=== PATIENT | male | born 1975 | race Caucasian/White ===

== ENCOUNTER 2016-04-22 18:07 | Emergency (ER) | payer MEDICAID ==
[2016-04-22] MEDS ORDERED: NORMAL SALINE 1000 ML 1,000 ML IV ONE (20:10)
[2016-04-22] MEDS ORDERED: OXYCODONE HCL IR 5 MG TABLET PO ONE (20:10)
[2016-04-22] MEDS ORDERED: ONDANSETRON HCL INJ/PF 4 MG/2 ML SDV IV ONE (20:10)
[2016-04-22 20:21] LABS: ABSOLUTE EOSINOPHILS # (AUTO) 0.1 10^3/uL (0.0-0.6); ABSOLUTE LYMPHOCYTES (AUTO) 1.2 10^3/uL (0.5-4.7); ABSOLUTE MONOCYTES (AUTO) 0.8 10^3/uL (0.1-1.4); ABSOLUTE NEUT (AUTO) 5.2 10^3/uL (1.7-8.2); BASOPHILS % (AUTO) 0.5 % (0-2); EOSINOPHILS % (AUTO) 0.9 % (0-6); HEMATOCRIT 47.2 % (37.9-51.0); HEMOGLOBIN 15.9 g/dL (13.5-17.0); HGB HCT DIFFERENCE 0.5; LYMPHOCYTES % (AUTO) 16.9 % (13-45); MEAN CORPUSCULAR HEMOGLOBIN 29.8 pg (27.0-33.4); MEAN CORPUSCULAR HGB CONC 33.7 g/dL (32.0-36.0); MEAN CORPUSCULAR VOLUME 88 fl (80-97); MONOCYTES % (AUTO) 10.9 % (3-13); RED BLOOD COUNT 5.35 10^6/uL (4.35-5.55); RED CELL DISTRIBUTION WIDTH 15.5 % (11.5-14.0); SEGMENTED NEUTROPHILS % (AUTO) 70.8 % (42-78); WHITE BLOOD COUNT 7.3 10^3/uL (4.0-10.5)
--- NOTE | 2016-04-22 20:25 | ER Document Report ---
ED General - General Chief Complaint: Abdominal Pain Stated Complaint: STOMACH PAINS Notes: Patient is a 40-year-old male past medical history of APL currently in remission however last chemotherapy dose was 3 days ago who presents with 6 hours of vomiting. States that he began vomiting earlier today mostly with posttussive emesis and since having multiple episodes of vomiting his head diffuse, generalized, mild abdominal cramping. Nothing improves or worsens his symptoms. He is uncertain if he has had similar symptoms in the past. He denies any focal abdominal pain. Denies diarrhea and significant abnormal bowel movements and continued this to pass flatus without difficulty. He has not seen his primary care doctor regarding today's concerns. He does also complain of severe, constant, sharp pain to the left great toe which he states feels identical to when he had gout in the past. TRAVEL OUTSIDE OF THE [place] IN LAST 30 DAYS: No - Related Data Allergies/Adverse Reactions: prednisone [Prednisone] Allergy (Verified 06/29/15 19:00) Past Medical History - General Information source: Patient - Social History Smoking Status: Never Smoker Frequency of alcohol use: None Drug Abuse: None Lives with: Spouse/Significant other Family History: Hypertension - Past Medical History Cardiac Medical History: Reports: Hx Congestive Heart Failure, Hx Hypertension Endocrine Medical History: Reports: Hx Diabetes Mellitus Type 2 Renal/ Medical History: Reports: Hx End Stage Renal Disease Malignancy Medical History: Reports Hx Leukemia - AML Psychiatric Medical History: Reports: Hx Anxiety Past Surgical History: Reports: Hx Orthopedic Surgery - Immunizations Hx Diphtheria, Pertussis, Tetanus Vaccination: Yes Review of Systems - Review of Systems Notes: Constitutional: Negative for fever. HENT: Negative for sore throat. Eyes: Negative for visual changes. Cardiovascular: Negative for chest pain. Respiratory: Negative for shortness of breath. Gastrointestinal: Positive for abdominal cramping and vomiting Genitourinary: Negative for dysuria. Musculoskeletal: Negative for back pain. Skin: Negative for rash. Neurological: Negative for headaches, weakness or numbness. 10 point ROS negative except as marked above and in HPI. Physical Exam - Vital signs Vitals: Temp Pulse Resp BP Pulse Ox 98.1 F 109 H 18 111/74 95 04/22/16 18:17 04/22/16 18:17 04/22/16 18:17 04/22/16 18:17 04/22/16 18:17 Interpretation: Tachycardic Notes: PHYSICAL EXAMINATION: GENERAL: Well-appearing, well-nourished and in no acute distress. HEAD: Atraumatic, normocephalic. EYES: Pupils equal round and reactive to light, extraocular movements intact, sclera anicteric, conjunctiva are normal. ENT: nares patent, oropharynx clear without exudates. Moist mucous membranes. NECK: Normal range of motion, supple without lymphadenopathy LUNGS: Breath sounds clear to auscultation bilaterally and equal. No wheezes rales or rhonchi. HEART: Regular rate and rhythm without murmurs ABDOMEN: Soft, nontender, normoactive bowel sounds. No guarding, no rebound. No masses appreciated. EXTREMITIES: Normal range of motion, no pitting or edema. No cyanosis. NEUROLOGICAL: No focal neurological deficits. Moves all extremities spontaneously and on command. PSYCH: Normal mood, normal affect. SKIN: Warm, Dry, normal turgor, no rashes or lesions noted. Course - Re-evaluation Re-evalutation: 04/22/16 20:23 Patient presents with persistent vomiting followed by abdominal cramping but is overall very well in appearance. He is in no distress whatsoever, vitals within normal limits. He is actively on chemotherapy at this time with a diagnosis of APL, last dose of chemotherapy was 3 days ago. Patient has no prior history of abdominal surgeries and has continued to pass flatus without difficulty. Having appropriate bowel movements. He vomited here in the emergency department and was contents of what he had eaten. No evidence of bilious vomiting. He has no focal abdominal tenderness on examination. I do not suspect an acute pancreatitis, biliary pathology, bowel obstruction or ileus. Likewise a do not suspect an acute mesenteric ischemia. Will obtain basic laboratories, provide IV fluids, and patient is already tolerated oral intake at the time my assessment. He is requesting pain management medications for gout in his left great toe which she has had in the past. 04/22/16 21:30 Patient laboratories show very mild acute kidney injury consistent with his frequent vomiting. He also is mild lipase elevation although not elevated and not to suggest an acute otitis and patient does not have any epigastric abdominal tenderness. He has continued to tolerate oral intake without difficulty. IV fluids have been completed. His repeat abdominal exam remains benign. Patient is also complaining of severe pain in his left great toe consistent with his prior attacks of gout. He will be empirically started on colchicine and given a short course of pain medications. Patient is also had multiple episodes of posttussive emesis and states the majority of his vomiting is actually been after coughing. He will also be sent on Tessalon Perles to assist with his persistent coughing. At this time will discharge with return precautions and follow-up recommendations. Verbal discharge instructions given a the bedside and opportunity for questions given. Medication warnings reviewed. Patient is in agreement with this plan and has verbalized understanding of return precautions and the need for primary care follow-up in the next 24-72 hours. 04/23/16 02:57 She was tachycardic at time of discharge. He and his both state that this is baseline for him. - Vital Signs Vital signs: Temp Pulse Resp BP Pulse Ox 98.9 F 116 H 20 126/82 H 96 04/22/16 22:50 04/22/16 22:50 04/22/16 22:50 04/22/16 22:50 04/22/16 22:50 - Laboratory Result Diagrams: 04/22/16 20:07 04/22/16 20:07 Laboratory results interpreted by me: 04/22/16 04/22/16 20:07 20:07 RDW 15.5 H BUN 29 H Creatinine 1.56 H Est GFR (Non-Af Amer) 50 L Glucose 157 H Lipase 472.5 H - Diagnostic Test Radiology reviewed: Image reviewed, Reports reviewed Radiology results interpreted by me: 04/23/16 02:57 Chest x-ray: No acute infiltrate Discharge - Discharge Clinical Impression: Acute renal insufficiency, Cough, Post-tussive emesis Vomiting Qualifiers: Vomiting type: unspecified Vomiting Intractability: non-intractable Nausea presence: with nausea Qualified Code(s): R11.2 - Nausea with vomiting, unspecified Gout Qualifiers: Gout site: toe Gout etiology: unspecified cause Laterality: left Chronicity: acute Qualified Code(s): M10.9 - Gout, unspecified Condition: Good Disposition: HOME, SELF-CARE Additional Instructions: You have been seen in the Emergency Department (ED) today for nausea and vomiting. Your work up today has not shown a clear cause for your symptoms. You have been prescribed Zofran; please use as prescribed as needed for your nausea. Follow up with your doctor as soon as possible regarding today's emergent visit and your symptoms of nausea. You are also being sent home with a dose of colchicine to take one hour after receiving your first dose here in the emergency department to treat the gout flare. You also being sent home with Tamra Major to help with her persistent coughing. The oxycodone that you were sent home with can be taken as needed for severe toe pain. You should also use ibuprofen 600 mg every 6 hours to help control the pain. Return to the Emergency Department (ED) if you develop abdominal pain, bloody vomiting, bloody diarrhea, if you are unable to tolerate fluids due to vomiting , or if you develop other symptoms that concern you. Prescriptions: Ondansetron [Zofran Odt 4 mg Tablet] 1 - 2 tab PO Q4HP PRN #10 tab.rapdis PRN Reason: Oxycodone HCl [Oxycodone HCl 10 MG Tablet] 10 mg PO Q6HP PRN #12 tablet PRN Reason: Benzonatate [Tessalon Perle 100 mg Capsule] 100 mg PO Q8HP PRN #40 cap PRN Reason: Referrals: SWATHI TEE PA-C [Primary Care Provider] - Follow up as needed
[2016-04-22 20:39] LABS: ANION GAP 16 (5-19); BLOOD UREA NITROGEN 29 mg/dL (7-20); CALCIUM 10.1 mg/dL (8.4-10.2); CARBON DIOXIDE 27 mmol/L (22-30); CHLORIDE 100 mmol/L (98-107); CREATININE RESULT 1.56 mg/dL (0.52-1.25); GLUCOSE 157 mg/dL (75-110); LIPASE 472.5 U/L (23-300); POTASSIUM 3.7 mmol/L (3.6-5.0); SODIUM 143.1 mmol/L (137-145)
[2016-04-22] MEDS ORDERED: ONDANSETRON ODT 4 MG TAB (6 TAB/DSPK) PO PRN (21:32)
[2016-04-22] MEDS ORDERED: COLCHICINE 0.6 MG TABLET PO ONE ×3 (21:46→21:52)
[2016-04-22] MEDS ORDERED: BENZONATATE 100 MG CAPSULE PO ONE (21:47)
[2016-04-22] MEDS ORDERED: HYDROCODONE/ACETAMINOPHEN 5-325 MG 6 TAB/DSPK PO PRN (22:46)
[2016-04-22 23:03] VITALS: BP 126/82
== END 2016-04-22 22:57 | disposition home or self-care (01) ==
LOC: ER 18:07
DX: N28.9 Disorder of kidney and ureter, unspecified (principal); R10.9 Unspecified abdominal pain; R11.2 Nausea with vomiting, unspecified; M10.9 Gout, unspecified; C92.Z1 Other myeloid leukemia, in remission; E11.22 Type 2 diabetes mellitus with diabetic chronic kidney disease; I13.11 Hypertensive heart and chronic kidney disease without heart failure, with stage 5 chronic kidney disease, or end stage renal disease; N18.6 End stage renal disease
CPT/HCPCS: 99284; 96361; 96374; 36415; 83690; 85025; 80048; 71020; J3490 ×3; J2405; J7030

== ENCOUNTER 2016-04-27 14:20 | Emergency (ER) | payer MEDICAID ==
[2016-04-27] MEDS ORDERED: ONDANSETRON HCL INJ/PF 4 MG/2 ML SDV IV ONE (14:32)
[2016-04-27] MEDS ORDERED: MORPHINE SULFATE 10 MG/ML INJ IV ONE (14:52)
--- NOTE | 2016-04-27 14:56 | ER Document Report ---
ED General - General Chief Complaint: Nausea/Vomiting Stated Complaint: NAUSEA Mode of Arrival: Medic Information source: Patient Notes: 40-year-old male history of leukemia presents with complaints of nausea vomiting. Patient denies any fevers or chills Patient admits to gout pain in his foot left 1st digit TRAVEL OUTSIDE OF THE [place] IN LAST 30 DAYS: No - HPI Onset: Last week Onset/Duration: Intermittent Quality of pain: Achy Severity: Mild Pain Level: 1 Associated symptoms: Nausea, Vomiting Exacerbated by: Denies Relieved by: Denies Similar symptoms previously: Yes Recently seen / treated by doctor: Yes - Related Data Allergies/Adverse Reactions: prednisone [Prednisone] Allergy (Verified 06/29/15 19:00) Past Medical History - Social History Smoking Status: Current Every Day Smoker Cigarette use (# per day): Yes Chew tobacco use (# tins/day): No Smoking Education Provided: No Family History: Hypertension - Past Medical History Cardiac Medical History: Reports: Hx Congestive Heart Failure, Hx Hypertension Endocrine Medical History: Reports: Hx Diabetes Mellitus Type 2 Renal/ Medical History: Reports: Hx End Stage Renal Disease Malignancy Medical History: 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 Denies recent illness. EENT: Denies eye, ear, throat, or mouth pain or symptoms. Denies nasal or sinus congestion or discharge. Denies throat, tongue, or mouth swelling or difficulty swallowing. CARDIOVASCULAR: Denies chest pain. Denies palpitations or racing or irregular heart beat. Denies ankle edema. RESPIRATORY: Denies cough, cold, or chest congestion. Denies shortness of breath, difficulty breathing, or wheezing. GASTROINTESTINAL: Admits nausea vomiting GENITOURINARY: Denies difficulty urinating, painful urination, burning, frequency, blood in urine, or discharge. MUSCULOSKELETAL: Denies back or neck pain or stiffness. Denies joint pain or swelling. SKIN: Denies rash, lesions or sores. HEMATOLOGIC : Denies easy bruising or bleeding. LYMPHATIC: Denies swollen, enlarged glands. NEUROLOGICAL: Denies confusion or altered mental status. Denies passing out or loss of consciousness. Denies dizziness or lightheadedness. Denies headache. Denies weakness or paralysis or loss of use of either side. Denies problems with gait or speech. Denies sensory loss, numbness, or tingling. Denies seizures. PSYCHIATRIC: Mood angry ALL OTHER SYSTEMS REVIEWED AND NEGATIVE. Dictation was performed using [employer] voice recognition software PHYSICAL EXAMINATION: GENERAL: Well-appearing, well-nourished and in no acute distress. HEAD: Atraumatic, normocephalic. EYES: Pupils equal round and reactive to light, extraocular movements intact, sclera anicteric, conjunctiva are normal. ENT: Nares patent, oropharynx clear without exudates. Moist mucous membranes. NECK: Normal range of motion, supple without lymphadenopathy LUNGS: Breath sounds clear to auscultation bilaterally and equal. No wheezes rales or rhonchi. HEART: Regular rate and rhythm without murmurs ABDOMEN: Soft, nontender, nondistended abdomen. No guarding, no rebound. No masses appreciated. Musculoskeletal: Normal range of motion, no pitting or edema. No cyanosis. NEUROLOGICAL: Cranial nerves grossly intact. Normal speech, normal gait. Normal sensory, motor exams PSYCH: Patient's angry cursing SKIN mild erythema of the left foot first digit Physical Exam - Vital signs Vitals: Temp Pulse Resp BP Pulse Ox 98.3 F 107 H 21 H 130/90 H 93 04/27/16 14:31 04/27/16 14:31 04/27/16 14:31 04/27/16 14:31 04/27/16 14:31 Course - Re-evaluation Re-evalutation: 04/27/16 14:52 Patient noted to be cursing out staph before my arrival to the room, he is quite rude to me as well states if he only receives 5 mg of pain medication he will "make a call and make things happen". pt refuses to explain what that means 04/27/16 14:56 Patient will be treated for his nausea vomiting, pain control ordered for his gout 04/27/16 16:36 pt has not vomited in the ed, demanding narcotics for home noted ot be hypokalemic, eating chips in the room After performing a Medical Screening Examination, I estimate there is LOW risk for ACUTE CORONARY SYNDROME, RESPIRATORY FAILURE, SEPSIS OR MENINGITIS, thus I consider the discharge disposition reasonable. The patient and I have discussed the diagnosis and risks, and we agree with discharging home with close follow- up. We also discussed returning to the Emergency Department immediately if new or worsening symptoms occur. We have discussed the symptoms which are most concerning (e.g., changing or worsening pain, trouble swallowing or breathing, neck stiffness, fever) that necessitate immediate return. - Vital Signs Vital signs: Temp Pulse Resp BP Pulse Ox 98.3 F 107 H 21 H 130/90 H 93 04/27/16 14:31 04/27/16 14:31 04/27/16 14:31 04/27/16 14:31 04/27/16 14:31 - Laboratory Result Diagrams: 04/27/16 15:40 04/27/16 15:40 Laboratory results interpreted by me: 04/27/16 04/27/16 15:40 15:40 RDW 15.2 H Potassium 3.1 L Chloride 95 L Carbon Dioxide 33 H Glucose 156 H Discharge - Discharge Clinical Impression: Hypokalemia Vomiting Qualifiers: Vomiting type: unspecified Vomiting Intractability: non-intractable Nausea presence: with nausea Qualified Code(s): R11.2 - Nausea with vomiting, unspecified Condition: Stable Disposition: HOME, SELF-CARE Instructions: Vomiting ([facility]) Prescriptions: Colchicine [Colchicine 0.6 mg Tablet] 0.6 mg PO ASDIR PRN #3 tablet PRN Reason: Hydrocodone/Acetaminophen [Lortab 7.5-325 mg Tablet] 1 each PO Q6 #14 tablet Referrals: LORRAINE TERRELL DO [Primary Care Provider] - Follow up tomorrow
[2016-04-27 16:08] LABS: ABSOLUTE EOSINOPHILS # (AUTO) 0.1 10^3/uL (0.0-0.6); ABSOLUTE MONOCYTES (AUTO) 0.7 10^3/uL (0.1-1.4); BASOPHILS % (AUTO) 0.3 % (0-2); EOSINOPHILS % (AUTO) 0.9 % (0-6); HEMATOCRIT 48.1 % (37.9-51.0); HEMOGLOBIN 16.2 g/dL (13.5-17.0); HGB HCT DIFFERENCE 0.5; LYMPHOCYTES % (AUTO) 34.9 % (13-45); MEAN CORPUSCULAR HEMOGLOBIN 29.3 pg (27.0-33.4); MEAN CORPUSCULAR HGB CONC 33.8 g/dL (32.0-36.0); MEAN CORPUSCULAR VOLUME 87 fl (80-97); MONOCYTES % (AUTO) 12.3 % (3-13); RED BLOOD COUNT 5.54 10^6/uL (4.35-5.55); RED CELL DISTRIBUTION WIDTH 15.2 % (11.5-14.0); SEGMENTED NEUTROPHILS % (AUTO) 51.6 % (42-78); WHITE BLOOD COUNT 5.9 10^3/uL (4.0-10.5)
[2016-04-27 16:26] LABS: ALANINE AMINOTRANSFERASE 38 U/L (21-72); ALBUMIN 4.3 g/dL (3.5-5.0); ALKALINE PHOSPHATASE 70 U/L (38-126); ANION GAP 16 (5-19); ASPARTATE AMINO TRANSFERASE 25 U/L (17-59); BILIRUBIN,TOTAL 1.1 mg/dL (0.2-1.3); BLOOD UREA NITROGEN 19 mg/dL (7-20); CALCIUM 9.5 mg/dL (8.4-10.2); CARBON DIOXIDE 33 mmol/L (22-30); CHLORIDE 95 mmol/L (98-107); CREATININE RESULT 1.07 mg/dL (0.52-1.25); GLUCOSE 156 mg/dL (75-110); POTASSIUM 3.1 mmol/L (3.6-5.0); SODIUM 143.8 mmol/L (137-145); TOTAL PROTEIN 7.4 g/dL (6.3-8.2)
[2016-04-27] MEDS ORDERED: POTASSIUM CHLORIDE 10 MEQ TABLET.SA PO ONE (16:29)
[2016-04-27 17:10] VITALS: BP 129/87
== END 2016-04-27 16:58 | disposition home or self-care (01) ==
LOC: ER 14:20
DX: R11.2 Nausea with vomiting, unspecified (principal); M10.9 Gout, unspecified; E87.6 Hypokalemia; R45.4 Irritability and anger; I12.0 Hypertensive chronic kidney disease with stage 5 chronic kidney disease or end stage renal disease; E11.22 Type 2 diabetes mellitus with diabetic chronic kidney disease; N18.6 End stage renal disease; F17.210 Nicotine dependence, cigarettes, uncomplicated; Z85.6 Personal history of leukemia; Z88.8 Allergy status to other drugs, medicaments and biological substances
CPT/HCPCS: 99284; 96374; 96375; 36415; 85025; 80053; J2270; J2405

== ENCOUNTER → 2016-05-21 | Outpatient (CLI) | payer MEDICAID | LOC: OD 10:22 | PROVIDERS: ATTEND Family Medicine | DX: M51.37 Other intervertebral disc degeneration, lumbosacral region (principal); M54.30 Sciatica, unspecified side | CPT/HCPCS: 72110 ==

== ENCOUNTER → 2016-06-08 | Outpatient (CLI) | payer MEDICAID | LOC: OD 15:09 | PROVIDERS: ATTEND Family Medicine | DX: M25.561 Pain in right knee (principal) ==

== ENCOUNTER 2016-07-11 01:16 | Emergency (ER) | payer MEDICAID ==
--- NOTE | 2016-07-11 02:06 | ER Document Report ---
ED General - General Chief Complaint: Chest Pain Stated Complaint: CHEST PAIN Time Seen by Provider: 07/11/16 02:04 Notes: Patient is a 40-year-old male who presents with complaint of chest pain. Patient says had similar chest pain in the past. He says he first hurt his chest a few years ago when he was lifting weights and felt a pop in his chest. He says tonight he developed exact same pain when he is picking his kids up off the top bunk. He says when he looked up his kids he felt this chest pop and now is having pain in the parasternal area between his ribs. Patient has a history of CHF. His history of leukemia. He says he is in remission but still takes medications for the leukemia. She says he did not have any pain prior to the episode where he picked up his kids. He did call an ambulance. Their EKG does show multiple PVCs but no other ischemic changes. He has had a cardiac stress test which were negative. He has no other complaints at this time. TRAVEL OUTSIDE OF THE [place] IN LAST 30 DAYS: No - Related Data Allergies/Adverse Reactions: prednisone [Prednisone] Allergy (Verified 06/29/15 19:00) Past Medical History - Social History Smoking Status: Unknown if Ever Smoked Frequency of alcohol use: None Drug Abuse: None Family History: Hypertension Patient has suicidal ideation: No Patient has homicidal ideation: No - Past Medical History Cardiac Medical History: Reports: Hx Congestive Heart Failure, Hx Hypertension Endocrine Medical History: Reports: Hx Diabetes Mellitus Type 2 Renal/ Medical History: Reports: Hx End Stage Renal Disease. 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 Denies recent illness. EENT: Denies eye, ear, throat, or mouth pain or symptoms. Denies nasal or sinus congestion. CARDIOVASCULAR: Chest pain RESPIRATORY: Denies cough, cold, or chest congestion. Denies shortness of breath, difficulty breathing, or wheezing. GASTROINTESTINAL: Denies abdominal pain. Denies nausea, vomiting, or diarrhea. Denies constipation. Last BM: MUSCULOSKELETAL: Denies neck or back pain or joint pain or swelling. SKIN: Denies rash or skin lesions. NEUROLOGICAL: Denies altered mental status or loss of consciousness. Denies headache. Denies weakness or paralysis or loss of use of either side. Denies problems with gait or speech. Denies sensory or motor loss. ALL OTHER SYSTEMS REVIEWED AND NEGATIVE. Physical Exam - Vital signs Vitals: Temp Pulse Resp BP Pulse Ox 97.8 F 98 18 126/101 H 96 07/11/16 01:35 07/11/16 01:35 07/11/16 01:35 07/11/16 01:35 07/11/16 01:35 - Notes Notes: General Appearance: Well nourished, alert, cooperative, no acute distress, moderate obvious discomfort. Vitals: reviewed, See vital signs table. Head: no swelling or tenderness to the head Eyes: PERRL, EOMI, Conjuctiva clear Mouth: No decreasd moisture Chest wall: Patient has pain to palpation of the chest that is pinpoint over both sides of the chest at approximately the anterior fourth rib space. He is very tender with any palpation or pushing over these areas. Lungs: No wheezing, No rales, No rhonci, No accessory muscle use, good air exchange bilaterally. Heart: Normal rate, Regular rythm, No murmur, no rub Abdomen: Normal BS, soft, No rigidity, No abdominal tenderness, No guarding, no rebound, no abdominal masses, no organomegaly Extremities: strength 5/5 in all extremities, good pulses in all extremities, no swelling or tenderness in the extremities, no edema. Skin: warm, dry, appropriate color, no rash Neuro: speech clear, oriented x 3, normal affect, responds appropriately to questions. Course - Vital Signs Vital signs: Temp Pulse Resp BP Pulse Ox 98.2 F 98 15 118/72 98 07/11/16 05:00 07/11/16 01:35 07/11/16 05:00 07/11/16 05:00 07/11/16 05:00 - Laboratory Result Diagrams: 07/11/16 02:50 07/11/16 02:50 Laboratory results interpreted by me: 07/11/16 07/11/16 02:50 02:50 WBC 11.6 H RDW 15.2 H BUN 25 H Glucose 122 H Creatine Kinase 47 L - EKG Interpretation by Me Additional EKG results interpreted by me: 07/11/16 02:05 EKG is reviewed and interpreted by me. EKG shows sinus tachycardia with rate of [address] segment elevation or depression. No ischemic T-wave inversions. [place] interval, QRS duration within normal range. QT interval is prolonged. Occasional PVCs. Old EKG for comparison is from September 25, 2015. - Transfer of Care Notes: 07/11/16 06:21 07/11/16 06:21 Patient's chest pain is very musculoskeletal in both exam and per history. Cardiac enzymes are negative. My only concern was that he was having some PVCs and apparently had a history of CHF. I had no echo to compare to see if he had any low ejection fraction. I did call and speak with Dr. 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 The patient's previous echoes. He said several years ago the patient had a ejection fraction 25%. He says that this resolved on its own. Says his last several echocardiograms all shown ejection fraction of 50-55%. He says if the patient has no signs of ischemia on his lab work, if the PVCs are not in rents such as V. tach, and the patient looks well been he recommends discharge and close follow-up in the office. Patient has not had any runs of V. tach. PVCs have always been single followed by a normal sinus beat. Patient's troponin and EKG showed no concerning ischemic changes. She will be discharged with Dr. Galloway. Patient has oxycodone at home. I do not think patient needs any further opiate prescriptions. Patient encouraged to return here for difficulty breathing, worsening pain, or feels unwell. Patient agrees to follow-up closely with Dr. Galloway. Attestation Discharge - Discharge Clinical Impression: Frequent PVCs Chest pain Qualifiers: Chest pain type: unspecified Qualified Code(s): R07.9 - Chest pain, unspecified Condition: Good Disposition: HOME, SELF-CARE Additional Instructions: Please call Dr. Galloway's office Tuesday. Please tell them that I spoke with Dr. James who requests that you follow up closely with Dr. galloway due to having frequent PVCs. Please return to the ER immediately if you are having worsening chest pain, difficulty breathing, or feel like your heart is racing. Forms: Return to Work
[2016-07-11] MEDS ORDERED: TRAMADOL HCL 50 MG TABLET PO ONE (02:24)
[2016-07-11] MEDS ORDERED: DIAZEPAM 2 MG TABLET PO ONE (02:27)
[2016-07-11 03:02] LABS: ABSOLUTE BASOPHILS # (AUTO) 0.1 10^3/uL (0.0-0.2); ABSOLUTE EOSINOPHILS # (AUTO) 0.1 10^3/uL (0.0-0.6); ABSOLUTE LYMPHOCYTES (AUTO) 4.5 10^3/uL (0.5-4.7); ABSOLUTE MONOCYTES (AUTO) 0.6 10^3/uL (0.1-1.4); ABSOLUTE NEUT (AUTO) 6.4 10^3/uL (1.7-8.2); BASOPHILS % (AUTO) 0.6 % (0-2); EOSINOPHILS % (AUTO) 0.9 % (0-6); HEMATOCRIT 46.8 % (37.9-51.0); HEMOGLOBIN 15.7 g/dL (13.5-17.0); HGB HCT DIFFERENCE 0.3; MEAN CORPUSCULAR HEMOGLOBIN 28.9 pg (27.0-33.4); MEAN CORPUSCULAR HGB CONC 33.6 g/dL (32.0-36.0); MEAN CORPUSCULAR VOLUME 86 fl (80-97); MONOCYTES % (AUTO) 4.8 % (3-13); RED BLOOD COUNT 5.45 10^6/uL (4.35-5.55); RED CELL DISTRIBUTION WIDTH 15.2 % (11.5-14.0); SEGMENTED NEUTROPHILS % (AUTO) 54.7 % (42-78); WHITE BLOOD COUNT 11.6 10^3/uL (4.0-10.5)
[2016-07-11 03:17] LABS: ALANINE AMINOTRANSFERASE 36 U/L (21-72); ALBUMIN 4.2 g/dL (3.5-5.0); ALKALINE PHOSPHATASE 64 U/L (38-126); ANION GAP 10 (5-19); ASPARTATE AMINO TRANSFERASE 28 U/L (17-59); BILIRUBIN,DIRECT 0.4 mg/dL (0.0-0.4); BILIRUBIN,TOTAL 0.5 mg/dL (0.2-1.3); BLOOD UREA NITROGEN 25 mg/dL (7-20); CALCIUM 9.8 mg/dL (8.4-10.2); CARBON DIOXIDE 29 mmol/L (22-30); CHLORIDE 102 mmol/L (98-107); CREATINE KINASE 47 U/L (55-170); CREATININE RESULT 1.07 mg/dL (0.52-1.25); GLUCOSE 122 mg/dL (75-110); SODIUM 141.4 mmol/L (137-145); TOTAL PROTEIN 7.3 g/dL (6.3-8.2)
[2016-07-11 03:28] LABS: CREATINE KINASE MB 0.38 ng/mL (<4.55)
[2016-07-11 03:31] LABS: TROPONIN I < 0.012 ng/mL
[2016-07-11] MEDS ORDERED: HYDROMORPHONE HCL INJ/PF 2 MG/ML AMPULE IM ONE (04:18)
[2016-07-11 05:06] VITALS: BP 118/72
--- NOTE | 2016-07-11 17:10 | EKG REPORT ---
SEVERITY:- ABNORMAL ECG - SINUS TACHYCARDIA VENTRICULAR BIGEMINY PROBABLE INFERIOR INFARCT, AGE INDETERMINATE CONSIDER ANTEROSEPTAL INFARCT BORDERLINE PROLONGED QT INTERVAL : Confirmed by: Flory Raymond MD 11-Jul-2016 17:10:10
== END 2016-07-11 05:12 | disposition home or self-care (01) ==
LOC: ER 01:16
DX: I49.3 Ventricular premature depolarization (principal); R07.9 Chest pain, unspecified; I50.9 Heart failure, unspecified
CPT/HCPCS: 93005; 99285; 36415; 82553; 82550; 85025; 80053; 84484; 71010; 93010; J3490

== ENCOUNTER 2016-08-28 20:30 | Emergency (ER) | payer MEDICAID ==
--- NOTE | 2016-08-28 22:58 | ER Document Report ---
ED Extremity Problem, Lower - General Chief Complaint: Leg Pain Stated Complaint: LEG PAIN Time Seen by Provider: 08/28/16 20:43 Cannot obtain history due to: Uncooperative Notes: Patient is a 40-year-old male with a history of chronic leg pain who apparently came in this evening for leg pain. Patient was being interviewed by nurse at the time I entered the room. Patient was both physically and verbally aggressive with the nurse. Patient appears in no distress. He is able to ambulate and move his legs without any difficulty. No erythema, rash, or cyanosis noted. Patient was escorted out by security for threatening behavior to nursing staff. TRAVEL OUTSIDE OF THE [place] IN LAST 30 DAYS: No - Related Data Allergies/Adverse Reactions: prednisone [Prednisone] Allergy (Verified 06/29/15 19:00) Past Medical History - General Cannot obtain history due to: Uncooperative - Social History Smoking Status: Current Some Day Smoker Chew tobacco use (# tins/day): No Frequency of alcohol use: None Drug Abuse: None Family History: Hypertension - Past Medical History Cardiac Medical History: Reports: Hx Congestive Heart Failure, Hx Hypertension Endocrine Medical History: Reports: Hx Diabetes Mellitus Type 2 Renal/ Medical History: Reports: Hx End Stage Renal Disease. 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 Psychiatric Medical History: Reports: Hx Anxiety Past Surgical History: Reports: Hx Orthopedic Surgery - Immunizations Hx Diphtheria, Pertussis, Tetanus Vaccination: Yes Review of Systems - Review of Systems -: Yes ROS unobtainable due to patient's medical condition Physical Exam - Vital signs Notes: Refused - General General appearance: Alert In distress: None - HEENT Head: Normocephalic, Atraumatic Eyes: Normal Extraocular movements intact: Yes - Respiratory Respiratory status: No respiratory distress - Extremities General upper extremity: Normal inspection, Normal ROM General lower extremity: Normal inspection, Normal ROM, Normal weight bearing - Psychological Associated symptoms: Aggressive, Agitated, Angry - Skin Skin Color: negative: Erythema, Cyanotic Course - Re-evaluation Re-evalutation: 08/28/16 Patient medically screened. Patient is refusing vitals. He is both physically and verbally aggressive with the nurse to the point that she was scared to be in the room with him. Security called to escort this patient who is in no acute distress out of the building for aggressive behavior. Of note, he is standing on the side of the building, smoking. Discharge - Discharge Clinical Impression: Aggressive behavior Chronic pain of lower extremity Qualifiers: Laterality: unspecified laterality Qualified Code(s): M79.606 - Pain in leg, unspecified; G89.29 - Other chronic pain Condition: Stable Disposition: HOME, SELF-CARE Instructions: Leg Pain Nonspecific ([facility])
== END 2016-08-28 20:55 | disposition home or self-care (01) ==
LOC: ER 20:30
DX: G89.29 Other chronic pain (principal); M79.606 Pain in leg, unspecified; R46.89 Other symptoms and signs involving appearance and behavior; R45.1 Restlessness and agitation; R45.4 Irritability and anger; I12.0 Hypertensive chronic kidney disease with stage 5 chronic kidney disease or end stage renal disease; E11.22 Type 2 diabetes mellitus with diabetic chronic kidney disease; N18.6 End stage renal disease; F17.200 Nicotine dependence, unspecified, uncomplicated; Z85.6 Personal history of leukemia
CPT/HCPCS: 99283

== ENCOUNTER 2016-11-19 22:06 | Emergency (ER) | payer MEDICAID ==
[2016-11-19 23:04] VITALS: BP 119/87
== END 2016-11-20 01:00 | disposition left against medical advice (07) ==
LOC: ER 22:06
DX: Z53.21 Procedure and treatment not carried out due to patient leaving prior to being seen by health care provider (principal)

== ENCOUNTER 2017-07-05 22:08 | Emergency (ER) | payer MEDICAID ==
[2017-07-05] MEDS ORDERED: ASPIRIN 81 MG TABLET, CHEWABLE PO ONE (22:22)
[2017-07-05 22:37] LABS: ABSOLUTE BASOPHILS # (AUTO) 0.1 10^3/uL (0.0-0.2); ABSOLUTE EOSINOPHILS # (AUTO) 0.1 10^3/uL (0.0-0.6); ABSOLUTE LYMPHOCYTES (AUTO) 4.2 10^3/uL (0.5-4.7); ABSOLUTE MONOCYTES (AUTO) 1.2 10^3/uL (0.1-1.4); ABSOLUTE NEUT (AUTO) 11.9 10^3/uL (1.7-8.2); BASOPHILS % (AUTO) 0.5 % (0-2); EOSINOPHILS % (AUTO) 0.6 % (0-6); HEMATOCRIT 54.2 % (37.9-51.0); HEMOGLOBIN 18.4 g/dL (13.5-17.0); LYMPHOCYTES % (AUTO) 23.8 % (13-45); MEAN CORPUSCULAR VOLUME 88 fl (80-97); MONOCYTES % (AUTO) 6.6 % (3-13); PLATELET COUNT 271 10^3/uL (150-450); RED BLOOD COUNT 6.15 10^6/uL (4.35-5.55); RED CELL DISTRIBUTION WIDTH 14.1 % (11.5-14.0); SEGMENTED NEUTROPHILS % (AUTO) 68.5 % (42-78); TOTAL CELLS COUNTED % (AUTO) 100 %; WHITE BLOOD COUNT 17.5 10^3/uL (4.0-10.5)
[2017-07-05 22:42] LABS: INTERNATIONAL RATION (INR) 0.87; PROTHROMBIN TIME 12.3 SEC (11.4-15.4)
[2017-07-05 23:14] LABS: VENOUS BLOOD BASE EXCESS 3.4 mmol/L; VENOUS BLOOD HCO3 29.3 mmol/L (20-32); VENOUS BLOOD PH 7.4 (7.30-7.42)
--- NOTE | 2017-07-05 23:17 | ER Document Report ---
ED General - General Mode of Arrival: Ambulatory Information source: Patient TRAVEL OUTSIDE OF THE [place] IN LAST 30 DAYS: No <COLE SCOTT - Last Filed: 07/05/17 23:11> <BRIAN ESPITIA - Last Filed: 07/06/17 01:18> - General Chief Complaint: Shortness Of Breath Stated Complaint: SHORTNESS OF BREATH Time Seen by Provider: 07/05/17 22:55 Notes: Patient is a 41 year old male with a history of HTN presents to the emergency department via EMS complaining of multiple symptoms including profuse diaphoresis, shortness of breath and dysuria onset today. Patient states after dinner he began to sweat profusely and had difficulty breathing. reports when she checked his blood pressure at home it was found to be 100/60 which is abnormally low for the patient. He also states that throughout the day he has not been able to urinate further stating he has the urge to go but nothing will come out. At bedside patient states he feels completely better. He states as soon as he received 150 mL of fluids and oxygen from EMS he felt back to his normal self. He also states he feels that he can now use the bathroom. (COLE SCOTT) - Related Data Allergies/Adverse Reactions: prednisone [Prednisone] Allergy (Verified 06/29/15 19:00) Past Medical History - General Information source: Patient - Social History Smoking Status: Former Smoker Frequency of alcohol use: Rare Drug Abuse: None Family History: Hypertension Patient has suicidal ideation: No Patient has homicidal ideation: No - Past Medical History Cardiac Medical History: Reports: Hx Congestive Heart Failure, Hx Hypertension Endocrine Medical History: Reports: Hx Diabetes Mellitus Type 2 Malignancy Medical History: Reports Hx Leukemia - AML Psychiatric Medical History: Reports: Hx Anxiety Past Surgical History: Reports: Hx Orthopedic Surgery - Immunizations Hx Diphtheria, Pertussis, Tetanus Vaccination: Yes <COLE SCOTT - Last Filed: 07/05/17 23:11> Review of Systems - Review of Systems Constitutional: See HPI, Diaphoresis EENT: No symptoms reported Cardiovascular: No symptoms reported Respiratory: See HPI, Short of breath Gastrointestinal: No symptoms reported Genitourinary: See HPI, Dysuria, Retention Male Genitourinary: No symptoms reported Musculoskeletal: No symptoms reported Skin: No symptoms reported Hematologic/Lymphatic: No symptoms reported Neurological/Psychological: No symptoms reported -: Yes All other systems reviewed and negative <COLE SCOTT - Last Filed: 07/05/17 23:11> Physical Exam - General General appearance: Appears well, Alert In distress: None - HEENT Head: Normocephalic, Atraumatic Eyes: Normal Conjunctiva: Normal Extraocular movements intact: Yes Pupils: PERRL Mucous membranes: Dry Neck: Normal - Respiratory Respiratory status: No respiratory distress Chest status: Nontender Breath sounds: Normal Chest palpation: Normal - Cardiovascular Rhythm: Regular, Tachycardia Heart sounds: Normal auscultation Murmur: No Friction rub: No Gallop: None auscultated - Abdominal Inspection: Obese Distension: No distension Bowel sounds: Normal Tenderness: Nontender Organomegaly: No organomegaly - Back Back: Normal - Extremities General upper extremity: Normal ROM General lower extremity: Normal ROM - Neurological Neuro grossly intact: Yes Cognition: Normal Orientation: AAOx4 Sultan Coma Scale Eye Opening: Spontaneous Denny Coma Scale Verbal: Oriented Denny Coma Scale Motor: Obeys Commands Sultan Coma Scale Total: 15 Speech: Normal - Psychological Associated symptoms: Normal affect, Normal mood - Skin Skin Temperature: Warm Skin Moisture: Dry Skin Color: Normal <COLE SCOTT - Last Filed: 07/05/17 23:11> - Vital signs Vitals: Temp Resp Pulse Ox 98.4 F 18 94 07/05/17 22:19 07/05/17 22:19 07/05/17 22:19 Course - Laboratory Result Diagrams: 07/05/17 21:45 07/05/17 21:45 <TYLERCOLE SWANSON - Last Filed: 07/05/17 23:11> - Laboratory Result Diagrams: 07/05/17 21:45 07/05/17 22:50 - EKG Interpretation by Nv EKG shows normal: Sinus rhythm, Edison, ST-T Waves. abnormal: Intervals - Prolonged QT interval, QRS Complexes - Inferior Q's, anteroseptal and lateral Q- wave Rate: Tachycardia - 108 When compared to previous EKG there are: No significant change <BRIAN ESPITIA - Last Filed: 07/06/17 01:18> - Re-evaluation Re-evalutation: 07/06/17 01:12 Patient's WBC was elevated, the lactic acid was elevated. At this point there is no clear explanation for these findings. As we were preparing to get repeat lab work to recheck the lactic acid and repeat the white count, the patient stated he was leaving. He stated "I have a Corvette and I am going to drive to [place]". As he became more obnoxious and unruly, I turned to walk out of the room and he began cursing at me. Reviewing prior visits, this behavior is not unusual, and he has had to be escorted out by security in the past(see visit on 09/07/2016). See what the patient wrote on the AMA form for further documentation of his infantile behavior. (BRIAN ESPITIA) - Vital Signs Vital signs: Temp Pulse Resp BP Pulse Ox 98.4 F 20 138/62 H 94 07/05/17 22:19 07/06/17 01:00 07/06/17 01:00 07/06/17 01:00 - Laboratory Laboratory results interpreted by me: 07/05/17 07/05/17 07/05/17 21:45 22:50 22:50 WBC 17.5 H RBC 6.15 H Hgb 18.4 H Hct 54.2 H RDW 14.1 H Absolute Neutrophils 11.9 H Sodium 136.7 L Chloride 94 L BUN 22 H Glucose 331 H Lactic Acid 3.5 H Calcium 10.3 H ALT 74 H Creatine Kinase 41 L Urine Protein Urine Glucose (UA) 07/05/17 23:20 WBC RBC Hgb Hct RDW Absolute Neutrophils Sodium Chloride BUN Glucose Lactic Acid Calcium ALT Creatine Kinase Urine Protein 100 H Urine Glucose (UA) 50 H Discharge <COLE SCOTT - Last Filed: 07/05/17 23:11> <BRIAN ESPITIA - Last Filed: 07/06/17 01:18> - Discharge Clinical Impression: Shortness of breath, Difficulty urinating, Low blood pressure reading, Elevated lactic acid level Leukocytosis Qualifiers: Leukocytosis type: unspecified Qualified Code(s): D72.829 - Elevated white blood cell count, unspecified Disposition: AGAINST MEDICAL ADVICE Referrals: LORRAINE TERRELL DO [Primary Care Provider] - Follow up as needed Scribe Attestation: 07/05/17 23:35 I personally performed the services described in the documentation, reviewed and edited the documentation which was dictated to the scribe in my presence, and it accurately records my words and actions. (BRIAN ESPITIA) Scribe Documentation - Scribe Written by Zoie:: Zoie Martinez, 07/05/2017 23:19 acting as scribe for :: Mars <COLE SCOTT - Last Filed: 07/05/17 23:11>
--- NOTE | 2017-07-05 23:21 | RADIOLOGY REPORT (SQ) ---
EXAM DESCRIPTION: CHEST SINGLE VIEW COMPLETED DATE/TIME: 07/05/2017 10:44 pm REASON FOR STUDY: shortness of breath COMPARISON: 07/11/2016 EXAM PARAMETERS: NUMBER OF VIEWS: One view. TECHNIQUE: Single frontal radiographic view of the chest acquired. RADIATION DOSE: NA LIMITATIONS: None. FINDINGS: LUNGS AND PLEURA: No acute opacities, masses or pneumothorax. No pleural effusion. MEDIASTINUM AND HILAR STRUCTURES: No masses. Contour normal. HEART AND VASCULAR STRUCTURES: Heart normal in size. Normal vasculature. BONES: No acute findings. HARDWARE: None in the chest. OTHER: No other significant finding. IMPRESSION: NO ACUTE RADIOGRAPHIC FINDING IN THE CHEST. TECHNICAL DOCUMENTATION: JOB ID: [id number] [place]-72 2010 [employer]- All Rights Reserved Reading location - IP/workstation name: [email or web address]
[2017-07-05 23:36] LABS: ALANINE AMINOTRANSFERASE 74 U/L (21-72); ALBUMIN 4.6 g/dL (3.5-5.0); ALKALINE PHOSPHATASE 56 U/L (38-126); ANION GAP 16 (5-19); ASPARTATE AMINO TRANSFERASE 53 U/L (17-59); BILIRUBIN,DIRECT 0.4 mg/dL (0.0-0.4); BILIRUBIN,TOTAL 0.5 mg/dL (0.2-1.3); BLOOD UREA NITROGEN 22 mg/dL (7-20); CALCIUM 10.3 mg/dL (8.4-10.2); CARBON DIOXIDE 27 mmol/L (22-30); CHLORIDE 94 mmol/L (98-107); CREATINE KINASE 41 U/L (55-170); GLUCOSE 331 mg/dL (75-110); SODIUM 136.7 mmol/L (137-145); TOTAL PROTEIN 7.2 g/dL (6.3-8.2)
[2017-07-05 23:45] LABS: APPEARANCE,URINE CLEAR; BILIRUBIN,URINE NEGATIVE (NEGATIVE); COLOR,URINE YELLOW; GLUCOSE, URINE 50 mg/dL (NEGATIVE); KETONES,URINE NEGATIVE (NEGATIVE); LEUKOCYTE ESTERASE,URINE NEGATIVE (NEGATIVE); NITRITE,URINE NEGATIVE (NEGATIVE); PROTEIN,URINE 100 mg/dL (NEGATIVE); URINE SPECIFIC GRAVITY 1.012; UROBILINOGEN,URINE NEGATIVE mg/dL (<2.0)
[2017-07-05 23:47] LABS: CREATINE KINASE MB 0.64 ng/mL (<4.55); TROPONIN I 0.014 ng/mL
[2017-07-06 01:17] VITALS: BP 138/62
--- NOTE | 2017-07-06 08:50 | EKG REPORT ---
SEVERITY:- ABNORMAL ECG - SINUS TACHYCARDIA INFERIOR INFARCT, OLD CONSIDER ANTEROSEPTAL INFARCT LATERAL LEADS ARE ALSO INVOLVED BORDERLINE PROLONGED QT INTERVAL : Confirmed by: Pavan Vaca 06-Jul-2017 08:50:06
== END 2017-07-06 01:23 | disposition left against medical advice (07) ==
LOC: ER 22:08
DX: R06.02 Shortness of breath (principal); I10 Essential (primary) hypertension; R03.0 Elevated blood-pressure reading, without diagnosis of hypertension; R30.0 Dysuria; R74.0 Nonspecific elevation of levels of transaminase and lactic acid dehydrogenase [LDH]; I50.9 Heart failure, unspecified
CPT/HCPCS: 36415; 71045; 80053; 81001; 82550; 82553; 82803; 83605; 84484; 85025; 85610; 87040; 93005; 93010; 99285

== ENCOUNTER 2018-01-05 12:25 | Emergency (ER) | payer MEDICARE, MEDICAID ==
[2018-01-05 12:49] VITALS: BP 127/94
--- NOTE | 2018-01-05 13:18 | ER Document Report ---
ED General - General Chief Complaint: Medical Clearance Stated Complaint: MEDICAL CLEARANCE Time Seen by Provider: 01/05/18 13:04 Mode of Arrival: Ambulatory Information source: Patient Notes: Chief complaint: Presents today for detox program History of complain:( obtained from----patient) 42 years old male presents today for detox EKG. He has a facility which is already willing to accept him but need to have an EKG done prior to that therefore he is here in the ED. He has a history of leukemia, subsequent current polysubstance abuse. Onset: As above Duration: Long-standing Severity: Mild to moderate Quality: As above Context: As above Exacerbating factor and relieving factors: As above REVIEW OF SYSTEMS: CONSTITUTIONAL : Denies fever, chills, or sweats. Denies recent illness. EENT: Denies eye, ear, throat, or mouth pain or symptoms. Denies nasal or sinus congestion or discharge. Denies throat, tongue, or mouth swelling or difficulty swallowing. CARDIOVASCULAR: Denies chest pain. Denies palpitations or racing or irregular heart beat. Denies ankle edema. RESPIRATORY: Denies cough, cold, or chest congestion. Denies shortness of breath, difficulty breathing, or wheezing. GASTROINTESTINAL: Denies distention. Denies nausea, vomiting, or diarrhea. Denies blood in vomitus, stools, or per rectum. Denies black, tarry stools. Denies constipation. GENITOURINARY: Denies difficulty urinating, painful urination, burning, frequency, blood in urine, or discharge. FEMALE GENITOURINARY: Denies vaginal bleeding, heavy or abnormal periods, irregular periods. Denies vaginal discharge or odor. MUSCULOSKELETAL: Denies back or neck pain or stiffness. Denies joint pain or swelling. SKIN: Denies rash, lesions or sores. HEMATOLOGIC : Denies easy bruising or bleeding. LYMPHATIC: Denies swollen, enlarged glands. NEUROLOGICAL: Denies confusion or altered mental status. Denies passing out or loss of consciousness. Denies dizziness or lightheadedness. Denies headache. Denies weakness or paralysis or loss of use of either side. Denies problems with gait or speech. Denies sensory loss, numbness, or tingling. Denies seizures. PSYCHIATRIC: Denies anxiety or stress. Denies depression, suicidal ideation, or homicidal ideation. ALL OTHER SYSTEMS REVIEWED AND NEGATIVE. PHYSICAL EXAMINATION: GENERAL: Well-appearing, well-nourished and in no acute distress. HEAD: Atraumatic, normocephalic. EYES: Pupils equal round and reactive to light, extraocular movements intact, conjunctiva are normal. ENT: Nares patent, oropharynx clear without exudates. Moist mucous membranes. NECK: Normal range of motion, supple without lymphadenopathy LUNGS: Breath sounds clear to auscultation bilaterally and equal. No wheezes rales or rhonchi. HEART: Regular rate and rhythm without murmurs ABDOMEN: Soft, nontender, nondistended abdomen. No guarding, no rebound. No masses appreciated. Examination of genitals-deferred Musculoskeletal: Normal range of motion, no pitting or edema. No cyanosis. NEUROLOGICAL: Cranial nerves grossly intact. Normal speech, normal gait. Normal sensory, motor exams PSYCH: Normal mood, normal affect. SKIN: Warm, Dry, normal turgor, no rashes or lesions noted. Dictation was performed using [employer] voice recognition software TRAVEL OUTSIDE OF THE [place] IN LAST 30 DAYS: No - HPI Notes: Dictated - Related Data Allergies/Adverse Reactions: prednisone [Prednisone] Allergy (Verified 01/05/18 12:45) Past Medical History - Social History Smoking Status: Never Smoker Frequency of alcohol use: Rare Drug Abuse: None Lives with: Family Family History: Hypertension Patient has suicidal ideation: No Patient has homicidal ideation: No - Past Medical History Cardiac Medical History: Reports: Hx Congestive Heart Failure, Hx Hypertension Endocrine Medical History: Reports: Hx Diabetes Mellitus Type 2 Renal/ Medical History: Reports: Hx End Stage Renal Disease. 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 Psychiatric Medical History: Reports: Hx Anxiety Past Surgical History: Reports: Hx Orthopedic Surgery - Immunizations Hx Diphtheria, Pertussis, Tetanus Vaccination: Yes Review of Systems - Review of Systems Notes: Dictated Physical Exam - Vital signs Vitals: Temp Pulse Resp BP Pulse Ox 98.4 F 100 24 H 127/94 H 93 01/05/18 12:47 01/05/18 12:47 01/05/18 12:47 01/05/18 12:47 01/05/18 12:47 - Notes Notes: Dictated Course - Vital Signs Vital signs: Temp Pulse Resp BP Pulse Ox 98.4 F 100 24 H 127/94 H 93 01/05/18 12:47 01/05/18 12:47 01/05/18 12:47 01/05/18 12:47 01/05/18 12:47 - EKG Interpretation by Me EKG shows normal: Sinus rhythm - At the rate of 92 bpm with bigeminy. Otherwise no acute changes. Discharge - Discharge Clinical Impression: Polysubstance abuse, Detox program Condition: Fair Disposition: HOME, SELF-CARE Instructions: Narcotic Abuse ([facility]) Referrals: LORRAINE TERRELL DO [Primary Care Provider] - Follow up as needed
--- NOTE | 2018-01-06 10:41 | EKG REPORT ---
SEVERITY:- ABNORMAL ECG - SINUS TACHYCARDIA VENTRICULAR BIGEMINY NONSPECIFIC INTRAVENTRICULAR CONDUCTION DELAY PROBABLE INFERIOR INFARCT, AGE INDETERMINATE : Confirmed by: Pavan Vaca 06-Jan-2018 10:39:44
== END 2018-01-05 13:30 | disposition home or self-care (01) ==
LOC: ER 12:25
DX: F19.10 Other psychoactive substance abuse, uncomplicated (principal); E11.22 Type 2 diabetes mellitus with diabetic chronic kidney disease; I13.11 Hypertensive heart and chronic kidney disease without heart failure, with stage 5 chronic kidney disease, or end stage renal disease; N18.6 End stage renal disease; I50.9 Heart failure, unspecified
CPT/HCPCS: 93005; 93010; 99283